=== PATIENT | female | born 1985 | race Caucasian/White ===

== ENCOUNTER 2022-01-04 17:11 | Emergency (ER) | payer BC ==
[2022-01-04] MEDS: Ondansetron 4 MG/2 ML SDV IVPUSH ONE (17:36)
[2022-01-04] MEDS: Sodium Chloride 0.9% 1,000 ML IV ONE (17:36)
[2022-01-04] MEDS: Ketorolac 15 MG/ML SDV IVPUSH ONE (17:36)
[2022-01-04 17:57] LABS: ANION GAP 13.5 mmol/L (5-15); CHLORIDE,CL 102 mmol/L (98-107); SODIUM,NA 135 mmol/L (136-145)
[2022-01-04] MEDS: Take Home: Ondansetron 4 MG Tab.DIS, 5 Tab Pack PO ONE (19:20)
== END 2022-01-04 19:20 | disposition home or self-care (01) ==
LOC: VM.ED 17:11
DX: U07.1 COVID-19 (principal); R11.10 Vomiting, unspecified; Z72.0 Tobacco use
CPT/HCPCS: 80053; 81003; 81025; 83690; 84484; 85025; 86140; 96374; 96375; 99284; 99284-25; J1885; J2405; J7030; Q0162